=== PATIENT | male | born 1995 ===

== ENCOUNTER 2019-08-07 20:43 | Emergency (ER) | payer SELFPAY ==
[2019-08-07] MEDS ORDERED: SILVER NITRATE APPLICATOR 1 EA TP ONE (22:36)
[2019-08-07] MEDS ORDERED: OXYMETAZOLINE 0.05% NASAL SPRAY NS ONE (22:36)
--- NOTE | 2019-08-07 23:10 | Emergency Department Report ---
ED ENT HPI - General Chief complaint: Nosebleed Stated complaint: NOSE BLEED Time Seen by Provider: 08/07/19 22:12 Source: EMS Mode of arrival: Stretcher Limitations: Language Barrier - History of Present Illness MD complaint: epistaxis -: Sudden, This afternoon Location: nose Severity: moderate Improves with: pressure Worsens with: none Context-Epistaxis: other (pt currently undergoing treatment for a mental health issue) Associated Symptoms: denies: cough, gum swelling, toothache, pain with swallowing, sore throat, tinnitus, discharge from ear, rhinorrhea ED Dental HPI - General Chief complaint: Nosebleed Stated complaint: NOSE BLEED Time Seen by Provider: 08/07/19 22:12 Source: EMS Mode of arrival: Stretcher Limitations: Language Barrier ED Review of Systems ROS: Stated complaint: NOSE BLEED Other details as noted in HPI Comment: All other systems reviewed and negative ED Past Medical Hx - Past Medical History Previous Medical History?: Yes Hx Hypertension: Yes Hx Psychiatric Treatment: Yes - Surgical History Additional Surgical History: unknown - pt unsure - Social History Smoking Status: Unknown if ever smoked Substance Use Type: None ED Physical Exam - General Limitations: Language Barrier General appearance: alert, in no apparent distress - Head Head exam: Present: atraumatic, normocephalic - Eye Eye exam: Present: normal appearance, PERRL, EOMI - ENT ENT exam: Present: mucous membranes moist, other (several punctate areas of bleeding in bilateral turnbinates) - Neck Neck exam: Present: normal inspection - Respiratory Respiratory exam: Present: normal lung sounds bilaterally. Absent: respiratory distress, wheezes, rales, rhonchi - Cardiovascular Cardiovascular Exam: Present: regular rate, normal rhythm, normal heart sounds. Absent: systolic murmur, diastolic murmur, rubs, gallop - GI/Abdominal GI/Abdominal exam: Present: soft, normal bowel sounds - Rectal Rectal exam: Present: deferred - Extremities Exam Extremities exam: Present: normal inspection - Back Exam Back exam: Present: normal inspection - Neurological Exam Neurological exam: Present: alert, oriented X3 - Psychiatric Psychiatric exam: Present: normal affect, normal mood - Skin Skin exam: Present: warm, dry, intact, normal color. Absent: rash ED Course Vital Signs 08/07/19 08/07/19 21:13 21:19 Temperature 98.3 F Pulse Rate 92 H Respiratory 15 15 Rate Blood Pressure 129/86 Blood Pressure 129/86 [Left] O2 Sat by Pulse 98 98 Oximetry ED Medical Decision Making - Medical Decision Making Silver nitrate was used to cauterize the small punctate areas of bleeding. Afrin was used as well. Patient's turbinates were coated with bacitracin the patient be discharged home. Critical care attestation.: If time is entered above; I have spent that time in minutes in the direct care of this critically ill patient, excluding procedure time. ED Disposition Clinical Impression: Epistaxis Disposition: DC-01 TO HOME OR SELFCARE Is pt being admited?: No Does the pt Need Aspirin: No Condition: Stable Instructions: Epistaxis (ED) Referrals: PRIMARY CARE, [Primary Care Provider] - 3-5 Days Time of Disposition: 23:26 Print Language: WELSH
[2019-08-07] MEDS ORDERED: BACITRACIN ZINC OINT 28.4 GM TP ONE (23:15)
[2019-08-08 00:10] VITALS: BP 121/83
== END 2019-08-08 00:05 | disposition home or self-care (01) ==
LOC: ED 20:43
DX: R04.0 Epistaxis (principal); I10 Essential (primary) hypertension